=== PATIENT | female | born 1950 | race Caucasian/White ===

== ENCOUNTER 2017-04-27 17:48 | Emergency (ER) | payer BC ==
--- NOTE | 2017-04-27 18:14 | UC ---
Complaint Female HPI - HPI Summary HPI Summary: Urinary frequency and urgency starting yesterday. Pt has had only a couple UTIs in her life, last one 15 years ago. Denies fever, vomiting, back pain, vaginal symptoms. Denies pain or burning. - History Of Current Complaint Hx Obtained From: Patient ?: No Onset/Duration: Gradual Onset, Lasting Days Timing: Constant Severity Initially: Mild Severity Currently: Mild Character: Dull Aggravating Factor(s): Urination <Yari Combs - Last Filed: 04/27/17 18:19> <Ban Simon - Last Filed: 04/27/17 19:38> - History Of Current Complaint Chief Complaint: UCGU Stated Complaint: UTI TYPE SYMPTOMS Time Seen by Provider: 04/27/17 18:04 - Allergies/Home Medications Allergies/Adverse Reactions: Allergies Allergy/AdvReac Type Severity Reaction Status Date / Time Shellfish Allergy Allergy Swelling Verified 04/27/17 17:54 Home Medications: Home Medications Enalapril TAB* [Vasotec TAB*] 04/27/17 [History] Exenatide [Bydureon Pen] 04/27/17 [History] Potassium Chlor TAB* [Klor Con ER TAB 10 MEQ*] 04/27/17 [History] Simvastatin [Zocor 40 MG (NF)] 04/27/17 [History Confirmed 04/27/17] metFORMIN* [Glucophage 850 MG TAB *] 04/27/17 [History] PMH/Surg Hx/FS Hx/Imm Hx Endocrine History: Diabetes Cardiovascular History: Hypertension - Surgical History Surgical History: None - Family History Known Family History: Positive: Hypertension - Social History Alcohol Use: None Substance Use Type: None Smoking Status (MU): Never Smoked Tobacco <Yari Combs - Last Filed: 04/27/17 18:19> Review of Systems Constitutional: Negative Skin: Negative Eyes: Negative ENT: Negative Respiratory: Negative Cardiovascular: Negative Gastrointestinal: Negative Genitourinary: Frequency, Urgency Motor: Negative Neurovascular: Negative Musculoskeletal: Negative Neurological: Negative Psychological: Negative All Other Systems Reviewed And Are Negative: Yes <Yari Combs - Last Filed: 04/27/17 18:19> Physical Exam Triage Information Reviewed: Yes Appearance: No Pain Distress, Obese Vital Signs: Initial Vital Signs Temp 96.6 F 04/27/17 17:52 Pulse 92 04/27/17 17:52 Resp 12 04/27/17 17:52 BP 179/79 04/27/17 17:52 Pulse Ox 99 04/27/17 17:52 Vital Signs Reviewed: Yes Eye Exam: Normal, Other - PERRL Eyes: Positive: Conjunctiva Clear ENT Exam: Normal ENT: Positive: Normal ENT inspection, Hearing grossly normal, Pharynx normal, TMs normal Dental Exam: Normal Neck exam: Normal Neck: Positive: Supple, Nontender, No Lymphadenopathy Respiratory Exam: Normal Respiratory: Positive: Chest non-tender, Lungs clear, Normal breath sounds, No respiratory distress, No accessory muscle use Cardiovascular Exam: Normal Cardiovascular: Positive: RRR, No Murmur Abdomen Description: Positive: Soft. Negative: CVA Tenderness (R), CVA Tenderness (L) Musculoskeletal Exam: Normal Neurological Exam: Normal Neurological: Positive: Alert Psychological Exam: Normal Skin Exam: Normal <Yari Combs - Last Filed: 04/27/17 18:19> Vital Signs: Initial Vital Signs Temp 96.6 F 04/27/17 17:52 Pulse 92 04/27/17 17:52 Resp 12 04/27/17 17:52 BP 179/79 04/27/17 17:52 Pulse Ox 99 04/27/17 17:52 <Ban Simon - Last Filed: 04/27/17 19:38> Complaint Female Dx - Differential Dx/Diagnosis Provider Diagnoses: urinary frequency. hematuria <Yari Combs - Last Filed: 04/27/17 18:19> Discharge <Yari Combs - Last Filed: 04/27/17 18:19> <Ban Simon - Last Filed: 04/27/17 19:38> - Discharge Plan Condition: Stable Disposition: HOME Patient Education Materials: Hematuria (ED) Referrals: Oneyda Whiteside PA [Primary Care Provider] - Additional Instructions: Because you are not having pain and you are not particularly prone to UTIs, I am simply sending a culture. If you have sudden worsening, please call here or see your primary care provider. I will be working tomorrow 04/28/17 all day, so if you do develop significant pain I will happily send in a prescription for an antibiotic. If your culture is negative and your symptoms resolve on their own, I do recommend you see your primary care provider in 2-4 weeks for a follow-up visit to make sure the trace blood in your urine resolves. Attestation Statement User Type: Provider - I was available for consult. This patient was seen by the HERBER. The patient was not presented to, seen by, or examined by me. -Artie <Ban Simon - Last Filed: 04/27/17 19:38>
[2017-04-27 18:22] VITALS: BP 179/79
== END 2017-04-27 18:24 | disposition home or self-care (01) ==
LOC: UCEAST 17:48
DX: R35.0 Frequency of micturition (principal); R31.9 Hematuria, unspecified; I10 Essential (primary) hypertension; E11.9 Type 2 diabetes mellitus without complications; Z79.84 Long term (current) use of oral hypoglycemic drugs
CPT/HCPCS: 81003; 87086; 99201; G0463

== ENCOUNTER 2019-10-05 09:22 | Emergency (ER) | payer MEDICARE, BC ==
--- OUTSIDE RECORDS SUMMARY | 2019-10-05 09:28 | XMS REPORT | Continuity of Care Document ---
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 Obesity JUAN Weir Onset: 2019 Asthma Oneyda Whiteside PA Onset: 2019 Essential hypertension Oneyda Whiteside PA Onset: 2019 Hyperlipidemia JUAN Weir Onset: 2019 Type II diabetes mellitus uncontrolled JUAN Weir Onset: 2019 Social History Type Date Description Comments Sex Unknown ETOH Use Denies alcohol use Tobacco Use Start: Unknown Patient has never smoked Smoking Status Reviewed: 03/11/19 Patient has never smoked Allergies, Adverse Reactions, Alerts Active Allergies Reaction Severity Comments Date Shellfish-derived Products 02/19/2019 Seasonal 02/19/2019 Medications Active Medications SIG Qnty Indications Ordering Date Provider Hydrochlorothiazide 1 by mouth every 90tabs I10 Will 09/11/20 25mg day Julien, 19 Tablets MD Momo Fraser Blood test blood sugar 1- 1units Will 09/11/20 Glucose Monitoring 3 times daily and Julien, 19 System as needed Device Metformin HCL take one tablet by 180tabs Will 03/12/20 1000mg Tablets mouth twice a day Wily 19 Cartyadira XT 1 cap by mouth 90caps Will 02/20/20 240mg Caps ER 24HR every day Olga Julien MD Atorvastatin Calcium 1 tab by mouth 90tabs Will 02/20/20 40mg every day Julien, 19 Tablets Olopatadine HCL 1 drop in eyes Will 02/20/20 0.1% Solution twice a day Wily 19 Potassium Chloride ER 1 by mouth every 90caps Will 02/20/20 10Meq day Wily 19 Capsules ER Enalapril Maleate 1 tab by mouth 180tabs 02/20/20 20mg twice a day Julien, 19 Tablets Bydureon 2mg subcutaneously 12units Will 02/20/20 2mg Pen weekly Wily 19 Freestyle Lite Test test blood sugar 3 100units 02/20/20 Strips times daily and as Wily 19 needed Xyzal 1 by mouth every 30tabs Will 02/20/20 5mg Tablets day Olga Julien MD Immunizations CPT Code Status Date Vaccine Lot # [id number] Given 07/15/2019 Fluzone High Dose 47550 Given 07/20/2018 Influenza Virus Vaccine, Quadrivalent, Split, Preservative Free 37982 Given 09/14/2017 Pneumonia Vaccine 08429 Given 09/14/2017 Influenza Virus Vaccine, Quadrivalent, Split, Preservative Free 17821 Given 09/14/2016 Pneumonia Vaccine 38717 Given 09/14/2016 Influenza Virus Vaccine, Quadrivalent, Split, Preservative Free 07312 Given 09/14/2015 Influenza Virus Vaccine, Quadrivalent, Split, Preservative Free Vital Signs Date Vital Result Comment 09/11/2019 2:24pm Weight 270.31 lb BP Systolic Sitting 150 mmHg 125/78 @ home BP Diastolic Sitting 86 mmHg 125/78 @ home Body Temperature 97.8 F 03/11/2019 9:51am Height 64 inches 5'4" Weight 271.12 lb Heart Rate 84 /min BP Systolic Sitting 152 mmHg lg. cuff BP Diastolic Sitting 90 mmHg lg. cuff O2 % BldC Oximetry 96 % BMI (Body Mass Index) 46.5 kg/m2 Results Description No Information Available Procedures Date Code Description Status 04/03/2019 36572 ECHO Transthorasic Realtime 2D W Doppler & Color Flow Completed Hosp 11/30/2018 145325618 Diabetic Retinal Eye Exam Completed Medical Devices Description No Information Available Encounters Description No Information Available Assessments Date Code Description Provider 09/11/2019 E11.65 Type 2 diabetes mellitus with hyperglycemia JUAN Weir 09/11/2019 I10 Essential (primary) hypertension JUAN Weir 09/11/2019 E78.5 Hyperlipidemia, unspecified JUAN Weir 04/03/2019 R01.1 Cardiac murmur, unspecified Katiuska Mitchell M.D. Plan of Treatment Future Appointment(s):12/10/2019 9:30 am - JUAN Weir at [facility]09/11/2019 - Oneyda Whiteside PAE11.65 Type 2 diabetes mellitus with hyperglycemiaNew Labs:CMP Panel, Ordered: 09/11/19Hemoglobin A1c, Ordered: 09/11TSH Thyroid Stimulating Horm, Ordered: 09/11/19Comments:Current medication(s) : Bydureon 2mg weekly, Metformin 850mg BIDI10 Essential (primary) hypertensionNew Medication:Hydrochlorothiazide 25 mg - 1 by mouth every dayComments:Current medication(s): Cartia XT 240mg daily, Enalapril 20mg BID Add HCTZFollow up:3 oatuhuE28.5 Hyperlipidemia, unspecifiedNew Labs:Lipid Panel , Ordered: 09/11/19Comments:Current treatment: Atorvastatin 40mg dailyDiscussed dietary cautionReviewed previous lipid panel(s). Functional Status Functional Condition Comment Date Status Glasses Active Mental Status Description No Information Available Referrals Description No Information Available
[2019-10-05 09:38] VITALS: BP 148/70
--- NOTE | 2019-10-05 10:00 | UC ---
Lower Extremity/Ankle HPI - HPI Summary HPI Summary: awoke with L chowdhury redness and ankle swelling for past 3 days, has not gotten worse or better. cannot recall injury to skin. denies fever, calf pain or swelling, no SOB/CP - History of Current Complaint Chief Complaint: UCLowerExtremity Stated Complaint: LEG COMPLAINT Time Seen by Provider: 10/05/19 09:43 Hx Obtained From: Patient Onset/Duration: Sudden Onset Severity Initially: Mild Severity Currently: Mild Pain Intensity: 1 Aggravating Factor(s): Standing - painful only upon standing in am, then resolves Alleviating Factor(s): Nothing Able to Bear Weight: Yes - Risk Factors DVT Risk Factors: Negative - Allergies/Home Medications Allergies/Adverse Reactions: Allergies Allergy/AdvReac Type Severity Reaction Status Date / Time shellfish derived Allergy Swelling Verified 10/05/19 09:27 Home Medications: Home Medications Aspirin/Acetaminophen/Caffeine [Excedrin Extra Strength Caplet] 1 each PO ONCE 10/05/19 [History Confirmed 10/05/19] Atorvastatin* [Lipitor 40 MG*] 40 mg PO DAILY 10/05/19 [History Confirmed ] Exenatide Microspheres [Bydureon] 2 mg SQ WEEKLY 10/05/19 [History Confirmed 08/14] Hydrochlorothiazide TAB* [Hydrodiuril TAB*] 25 mg PO DAILY 10/05/19 [History Confirmed 10/05/19] dilTIAZem HCl [Diltiazem 24Hr ER] 240 mg PO DAILY 10/05/19 [History Confirmed ] metFORMIN* [Glucophage 1000 MG TAB *] 1,000 mg PO BID 10/05/19 [History Confirmed 10/05/19] PMH/Surg Hx/FS Hx/Imm Hx Previously Healthy: Yes Endocrine History: Diabetes, Dyslipidemia Cardiovascular History: Hypertension - Surgical History Surgical History: Yes Surgery Procedure, Year, and Place: x2. hysterectomy. R rotator cuff - Family History Known Family History: Positive: Hypertension - Social History Occupation: Retired Lives: With Family Alcohol Use: None Substance Use Type: None Smoking Status (MU): Never Smoked Tobacco Review of Systems All Other Systems Reviewed And Are Negative: Yes Constitutional: Positive: Negative Skin: Positive: Other - erythema lower L anterior leg Respiratory: Positive: Negative. Negative: Shortness Of Breath, Cough Cardiovascular: Positive: Negative Musculoskeletal: Positive: Negative Neurological: Positive: Negative. Negative: Headache Psychological: Positive: Negative Is Patient Immunocompromised?: No Physical Exam Triage Information Reviewed: Yes Appearance: Well-Appearing, No Pain Distress, Obese Vital Signs: Initial Vital Signs Temp 97.8 F 10/05/19 09:32 Pulse 93 10/05/19 09:32 Resp 18 10/05/19 09:32 BP 148/70 10/05/19 09:32 Pulse Ox 97 10/05/19 09:32 Vital Signs Reviewed: Yes Respiratory Exam: Normal Respiratory: Positive: Lungs clear Cardiovascular: Positive: RRR, Pulses Normal, Other: - bilateral ankle edema ( states normal for her) Musculoskeletal Exam: Normal Musculoskeletal: Positive: Other: - No calf swelling or pain, no calf erythema, neg Dustin's test Skin Exam: Other - L chowdhury erythemic, shiney skin, warm to touch, mildly painful when touched. No obvious skin break or injury on inspection Lower Extremity Course/Dx - Differential Dx/Diagnosis Differential Diagnosis/HQI/PQRI: Cellulitis, DVT, Other - PVD Provider Diagnosis: Cellulitis Discharge ED - Sign-Out/Discharge Documenting (check all that apply): Patient Departure All imaging exams completed and their final reports reviewed: No Studies - Discharge Plan Condition: Stable Disposition: HOME Prescriptions: Amoxicillin/Clavulanate TAB* [Augmentin TAB 875*] 875 mg PO BID #20 tab Patient Education Materials: Cellulitis (DC) Referrals: Oneyda Whiteside PA [Primary Care Provider] - 2 Days (for recheck) Additional Instructions: elevate leg and apply warm packs start antibiotic and take as prescribed report to ER if at any time you experience fever, calf pain/redness/swelling or chest pain/shortness of breath or develop fever - Billing Disposition and Condition Condition: STABLE Disposition: Home
== END 2019-10-05 10:10 | disposition home or self-care (01) ==
LOC: UCEAST 09:22
DX: L03.116 Cellulitis of left lower limb (principal); E11.9 Type 2 diabetes mellitus without complications; E78.5 Hyperlipidemia, unspecified; I10 Essential (primary) hypertension; Z79.84 Long term (current) use of oral hypoglycemic drugs; Z79.899 Other long term (current) drug therapy; Z91.013 Allergy to seafood
CPT/HCPCS: 99212; G0463